=== PATIENT | male | born 1945 | race Caucasian/White ===

== ENCOUNTER 2020-07-23 13:48 | Emergency (ER) | payer MEDICARE ==
[~2020-07-23] VITALS: Ht 170.2 cm; Wt 113.0 kg
[2020-07-23] MEDS ORDERED: IV NORMAL SALINE 50ML 50 ML ONE (14:08)
[2020-07-23] MEDS ORDERED: IV NORMAL SALINE 250ML 250 ML ONE (14:08)
[2020-07-23] MEDS ORDERED: cefTRIAXone SODIUM 1 GM VIAL ONE (14:08)
[2020-07-23] MEDS ORDERED: AZITHROMYCIN 500 MG VIAL. IV ONE (14:09)
[2020-07-23] MEDS ORDERED: DEXAMETHASONE SOD PHOS 10 MG/ML VIAL. IVP ONE (14:15)
[2020-07-23] MEDS ORDERED: AZITHROMYCIN 500 MG in IV NORMAL SALINE 250ML 250 ML IV ONE (14:15)
--- NOTE | 2020-07-23 14:22 | PHYS DOC ---
Past History Past Medical History Sarcoidosis, diabetes, hypertension and hyperlipidemia Past Surgical History Cholecystectomy. Smoking: Non-smoker Alcohol Use: None Drug Use: None General Adult EDM: Chief Complaint: SHORTNESS OF BREATH HPI: HPI: This is a pleasant 74-year-old male who presents to the emergency department today after being seen in urgent care. He presented to urgent care after having flulike symptoms with shortness of breath and was wanting to be seen for possible Covid 19. At the urgent care the patient was hypoxic. They placed him on oxygen and called paramedics who brought him here for evaluation. He has been exposed to his family who has had flulike symptoms but never got tested for COVID-19. He denies diaphoresis nausea vomiting unilateral leg swelling hemoptysis. Review of systems negative for chest pain back pain. Positive for fevers nausea. Negative for vomiting. Negative for nuchal rigidity or rashes. All other review of systems negative. ED course: 74-year-old male presenting with shortness of breath found to be hypoxic at an urgent care brought in and placed on BiPAP. EKG shows sinus tachycardia with a heart rate of 112. ST segments show mild ST depression. Does not meet STEMI criteria. Patient's oxygen level improved substantially on BiPAP. Chest x-ray show possible pneumonia. Patient likely has COVID-19. D- dimer is significantly elevated. Broad spectrum abx given in the ED. Here in our hospital our CT scanner is down and we are using the hospital up the [place]. Based on the resources available I feel that it is in the patient's better interest to start heparin drip for a probable pulmonary embolism (significantly elevated d dimer with hypoxia and tachycardia and possible covid 19) and we will transfer the patient to a higher level care to the intensive care unit. I spoke with Dr. Lux who accepts the patient for admission. Patient will need a CT angiogram of the chest when the patient arrives to the ICU. I communicated this to Dr. Lux. Current Medications: Current Meds: Current Medications Medications (Trade) Dose Ordered Sig/Princess Start Time Stop Time Status Last Admin Dose Admin Azithromycin (Zithromax) 500 mg STK-MED ONCE 07/23/20 14:09 07/23/20 14:09 DC Azithromycin 500 mg/Sodium Chloride 250 ml @ 250 mls/hr 1X ONCE 07/23/20 14:15 07/23/20 15:14 Ceftriaxone Sodium 1 gm/ Sodium Chloride 50 ml @ 100 mls/hr 1X ONCE 07/23/20 14:15 07/23/20 14:44 Ceftriaxone Sodium (Rocephin) 1 gm STK-MED ONCE 07/23/20 14:08 07/23/20 14:08 DC Dexamethasone Sodium Phosphate (Decadron) 10 mg 1X ONCE 07/23/20 14:15 07/23/20 14:16 DC Sodium Chloride 250 ml @ As Directed STK-MED ONCE 07/23/20 14:08 07/23/20 14:09 DC Allergies: Allergies: Allergies Coded Allergies Type Severity Reaction Last Updated Verified No Known Drug Allergies 07/23/20 No Physical Exam: PE: Constitutional: Well developed, increased work of breathing. HENT: Normocephalic, atraumatic, bilateral external ears normal, oropharynx moist, no oral exudates, nose normal. [] Eyes: PERRLA, EOMI, conjunctiva normal, no discharge. [] Neck: Normal range of motion, no tenderness, supple, no stridor. [] Cardiovascular: Tachycardic with a regular rhythm. Lungs & Thorax: Crackles bilaterally at the bases of the lungs. Abdomen: Bowel sounds normal, soft, no tenderness, no masses, no pulsatile masses. [] Skin: Warm, dry, no erythema, no rash. [] Back: No tenderness, no CVA tenderness. [] Extremities: No tenderness, no cyanosis, no clubbing, ROM intact, no edema. [] Neurologic: Alert and oriented X 3, normal motor function, normal sensory function, no focal deficits noted. [] Psychologic: Affect normal, judgement normal, mood normal. [] EKG: EKG: [] EKG shows sinus rhythm with a tachycardic rate. ST segments congruent. Not suggestive of acute ischemia. Radiology/Procedures: Radiology/Procedures: [] Heart Score: Risk Factors: Risk Factors: DM, Current or recent (<one month) smoker, HTN, HLP, family history of CAD, obesity. Risk Scores: Score 0 - 3: 2.5% MACE over next 6 weeks - Discharge Home Score 4 - 6: 20.3% MACE over next 6 weeks - Admit for Clinical Observation Score 7 - 10: 72.7% MACE over next 6 weeks - Early Invasive Strategies Course & Med Decision Making: Course & Med Decision Making Pertinent Labs and Imaging studies reviewed. (See chart for details) [] Dragon Disclaimer: Dragon Disclaimer: This electronic medical record was generated, in whole or in part, using a voice recognition dictation system. Departure Departure: Impression: Primary Impression: Hypoxia Additional Impressions: Acute respiratory failure Pneumonia Disposition: DC/TRF OTHER SHORT TERM HOS ([facility]) Condition: CRITICAL Referrals: PCP,NO (PCP) Critical Care Time Critical care time spent was 45 minutes exclusive of procedures. Time was spent evaluating the patient, ordering the administration of medications, reevaluating the patient, discussing with the admitting provider and documenting. MIKE CHRISTIAN MD Jul 23, 2020 14:22
[2020-07-23 14:25] LABS: BASO % 0 % (0-3); EOS % 0 % (0-3); HEMATOCRIT 42.8 % (39.0-53.0); HEMOGLOBIN 14.3 g/dL (13.0-17.5); LYMPH # 0.6 x10^3/uL (1.0-4.8); LYMPH % 4 % (24-48); MEAN CORPUSCULAR HEMOGLOBIN 29 pg (25-35); MEAN CORPUSCULAR HGB CONC 33 g/dL (31-37); MEAN CORPUSCULAR VOLUME 87 fL (79-100); MONO # 1.7 x10^3/uL (0.0-1.1); MONO % 12 % (0-9); NEUT # 11.8 x10^3uL (1.8-7.7); NEUT % 84 % (31-73); PLATELET COUNT 330 x10^3/uL (140-400); RED BLOOD COUNT 4.95 x10^6/uL (4.30-5.70); RED CELL DISTRIBUTION WIDTH 13.9 % (11.5-14.5); WHITE BLOOD COUNT 14.2 x10^3/uL (4.0-11.0)
[2020-07-23 14:31] LABS: CALCIUM 8.8 mg/dL (8.5-10.1); CREATININE 1.2 mg/dL (0.7-1.3); GFR 59.5; POTASSIUM 3.2 mmol/L (3.5-5.1)
[2020-07-23 14:43] LABS: ALBUMIN 2.5 g/dL (3.4-5.0); DIRECT BILIRUBIN 0.5 mg/dL (0.0-0.2); TOTAL BILIRUBIN 0.8 mg/dL (0.2-1.0); TOTAL PROTEIN 7.7 g/dL (6.4-8.2)
--- NOTE | 2020-07-23 14:51 | RAD ---
XR CHEST 1V History: Reason: chest pain / Spl. Instructions: / History: Comparison: None. Findings: Multifocal masslike consolidations bilaterally. Calcified mediastinal and hilar lymph nodes, likely p rior granulous disease. No pleural effusion. Eventration of the right hemidiaphragm. No pneumothorax. Portable technique accentuates chronic size. Impression: 1. Multifocal masslike pulmonary consolidations, may represent pneumonia. Recommend CT to further ev aluate. Electronically signed by: Case Carter DO (07/23/2020 2:48 PM) [id number]
[2020-07-23 14:54] LABS: BGAS PH 7.53 (7.35-7.46)
[2020-07-23 15:14] VITALS: BP 112/70
--- NOTE | 2020-07-23 15:17 | EKG ---
[address] [address] Test Date: 2020-07-23 Test Time: 14:07:33 Pat Name: JERMAN HUITRON Department: Room: Gender: M Manager [employer]: MONTY : 1945 Requested By: MIKE CHRISTIAN Order Number: [id number] Reading MD: Measurements Intervals [place] Rate: 112 P: 254 ID: [id number] QRS: -81 QRSD: 104 T: 31 QT: 372 QTc: 510 Interpretive Statements SINUS TACHYCARDIA ABNORMAL LEFT AXIS DEVIATION LEFT ANTERIOR FASCICULAR BLOCK INCOMPLETE RIGHT BUNDLE BRANCH BLOCK ABNORMAL ECG RI6.02 No previous ECG available for comparison
[2020-07-23] MEDS ORDERED: HEPARIN 25,000UTS/250ML PREMIX 250 ML IV PRN (15:30)
[2020-07-23] MEDS ORDERED: HEPARIN for IV BOLUS 10,000 UNIT/10 ML VIAL. IV ONE (15:30)
== END 2020-07-23 17:47 | disposition short-term general hospital (02) ==
LOC: ER 13:48
DX: U07.1 COVID-19 (principal); J96.01 Acute respiratory failure with hypoxia; J18.9 Pneumonia, unspecified organism; D86.9 Sarcoidosis, unspecified; E11.9 Type 2 diabetes mellitus without complications; I10 Essential (primary) hypertension; E78.5 Hyperlipidemia, unspecified; Z90.49 Acquired absence of other specified parts of digestive tract
CPT/HCPCS: 36415; 36600; 71045; 80048; 80076; 82803; 83690; 83880; 84484; 85025; 85379; 85610; 85730; 87040; 93005; 94660; 96365; 96366; 96368; 96375; 96376; 99291; C9803; J0456; J0696; J1100; J1644; J7050; U0003